=== PATIENT | female | born 1975 | race Caucasian/White ===

== ENCOUNTER 2020-12-18 16:14 | Emergency (ER) | payer MEDICAID, OTHER, SELFPAY ==
[2020-12-18 16:17] VITALS: BP 144/84; PULSE 96; RESP 16; TEMP 36.8; O2SAT 99; BMI 32.5
--- NOTE | 2020-12-18 16:32 | ED.GENADULT ---
HPI - General Adult General Chief complaint: General Medical Stated complaint: Headache,ear pain Time Seen by Provider: 12/18/20 16:32 Source: patient Mode of arrival: ambulatory Limitations: no limitations History of Present Illness HPI narrative: 45 y/o female presenting with sore throat and ear pain for the last 4 days. The pain in her right ear is worse and extends into her head. Worse when she lays down. She also has had a dry cough and some congestion. She has no known sick contacts, denies seasonal allergies. No hearing loss or drainage from the ears. No difficulty eating or drinking. No fevers. She is full vaccinated against COVID-19. MD complaint: earache and sore throat Onset (ago): day(s) (4) Location: head, face and mouth Severity: moderate Quality: aching Pain Consistency: constant Relieving factors: medication Exacerbating factors: movement and other (laying flat and bending over) Associated symptoms: cough and headaches Treatments prior to arrival: none Related Data Previous Rx's Medication Instructions Recorded amoxicillin-pot clavulanate 1 tab PO BID #20 tab 12/18/20 [Augmentin] Allergies Allergy/AdvReac Type Severity Reaction Status Date / Time No Known Allergies Allergy Verified 12/18/20 16:19 Review of Systems Review of Systems: Constitutional: No Fever, No Chills ENT/Mouth: + sore throat, No Rhinorrhea, No Swallowing Difficulty, +ear pain, No dental pain Eyes: No Eye Pain, No Swelling, No Redness Cardiovascular: No Chest Pain, No SOB Respiratory: No Cough, No Sputum, No Wheezing, No dyspnea Gastrointestinal: No Nausea, No Vomiting, No Diarrhea, No abdominal Pain Musculoskeletal: No joint pain, No Myalgias Skin: No rash Neuro: No Weakness, No Numbness, No Dizziness, + Headache Heme/Lymph: No Lymphadenopathy PMFSH Past Medical History Attestation statement: The following information was validated with the patient. Medical History Migraine Vertigo Social History Social History Advance Directives: No Advance Directives Information Provided: No Patient : No Physical Exam Vital Signs: Vital Signs: Last Vital Signs Temp 98.2 F 12/18/20 16:17 Pulse 96 12/18/20 16:17 Resp 16 12/18/20 16:17 BP 144/84 H 12/18/20 16:17 Pulse Ox 99 12/18/20 16:17 Body Mass Index 32.5 Const: General: cooperative, healthy appearing, comfortable and no acute distress HENMT: Head: Yes normal to inspection, Yes normocephalic and Yes atraumatic Ears: hearing grossly normal bilaterally, external ears normal, TM normal on the left and TM abnormal bulging on the right, erythematous on the right and with fluid behind the TM on the right General nose exam: Normal external nose present and Normal nares present Face and sinus: Yes normal facial exam and Yes face symmetric Mouth: Normal oral and palatal mucosa present, lip normal, tongue normal, Normal salivary glands and ducts present, oropharynx normal and moist mucous membranes Teeth and gingiva: dentition normal and gingiva normal Throat: Yes tonsils normal, Yes uvula midline and Yes posterior oropharynx abnormal (mild generalized erythema) Eyes: General: appearance normal, both eyes and all related structures Neck: Neck: Yes normal visual inspection, Yes full ROM and Yes no lymphadenopathy Chest: Chest palpation & inspection: normal inspection of the chest and normal palpation of entire chest wall Resp: Effort & Inspection: normal respiratory effort and able to speak in complete sentences Auscultation: clear to auscultation bilaterally Skin: General skin exam: no rashes or lesions noted Extrem: General: Yes normal to inspection Psych: Appearance: grossly normal and well kempt Mental Status: mental status grossly normal Course Course Course Narrative: 45 y/o female presenting with R>L ear pain and sore throat for last 4 days. She is non-toxic appearing with normal VS. She is fully vaccinated against COVID and has no fevers, no body aches. Her exam does not support Strep throat but is consistent with acute otitis media of the right ear. Will treat with Augmentin x10 days and have her f/u with PCP PRN. She is stable for discharge home. Critical Care Time Critical Care Time Critical Care Time: No Discharge Plan Discharge Clinical Impression: Otitis media Qualifiers: Otitis media type: suppurative Chronicity: acute Laterality: right Recurrence: non-recurrent Spontaneous tympanic membrane rupture: without spontaneous rupture Qualified Code(s): H66.001 - Acute suppurative otitis media without spontaneous rupture of ear drum, right ear Patient Disposition: Home, Self-Care Instructions: Ear Infection (ED) Additional Instructions: Take the prescribed antibiotic as directed for ear infection. Recommend tylenol and/or motrin as needed for headaches and ear ache. Follow up with your doctor as needed. If you develop new or worsening symptoms call 911 or come back to the ER for further evaluation. Prescriptions: New amoxicillin-pot clavulanate [Augmentin] 875-125 mg tablet 1 tab PO BID Qty: 20 RF: 0
== END 2020-12-18 17:04 | disposition home or self-care (01) ==
PROVIDERS: Emergency Provider Emergency Medicine
DX: H66.001 Acute suppurative otitis media without spontaneous rupture of ear drum, right ear (principal); R51.9 Headache, unspecified; R05 Cough
CPT/HCPCS: 99284

== ENCOUNTER 2021-06-03 15:58 | Emergency (ER) | payer MEDICAID, OTHER, SELFPAY ==
[2021-06-03 16:40] VITALS: BP 146/79; PULSE 90; RESP 16; TEMP 36.9; O2SAT 98; BMI 31.4
== END 2021-06-03 17:00 | disposition left against medical advice (07) ==
LOC: HO.ED 18:25
PROVIDERS: Emergency Provider Emergency Medicine
DX: R14.0 Abdominal distension (gaseous) (principal)
CPT/HCPCS: 99281; 99282